=== PATIENT | male | born 1965 | race Caucasian/White ===

== ENCOUNTER 2020-05-08 21:18 | Emergency (ER) | payer OTHER ==
[~2020-05-08] VITALS: Ht 190.5 cm; Wt 97.5 kg
[2020-05-08] MEDS ORDERED: KETOROLAC TROMETHAMINE 30 MG/ML VIAL IV STA (21:38)
[2020-05-08] MEDS ORDERED: KETOROLAC TROMETHAMINE 30 MG/ML VIAL IM STA (21:40)
--- NOTE | 2020-05-08 21:44 | Emergency Department Note ---
History of Present Illnes History of Present Illness Chief Complaint: Back Pain History of Present Illness This is a 54 year old male Chief Complaint Comment 54 Y/O MALE PT AAOX3 PRESENTS TO THE ER C/O LT LOWER BACK WITH PAIN INTERMITTENTLY PAIN TO LLE; PT STATES HE WAS DIGGING A HOLE AND STRAINED HIS BACK AND PAIN PROGRESSIVLY WORSENING OVER THE PAST COUPLE OF DAYS; PT APPEARS IN PAIN; PT TOOK X2 Tylenol AT 1800 Historian: Patient Arrival Mode: Car Rhit Required: No Onset (how long ago): day(s) (2) Location: Left lower back Quality: Sharp Radiation: Reports non-radiation Severity: severe Onset quality: gradual Duration (how long): day(s) (2) Timing of current episode: constant Progression: worsening Chronicity: new Context: Denies recent illness, Denies recent surgery Relieving factors: none Exacerbating factors: none Associated symptoms: Reports denies other symptoms Treatments prior to arrival: none Past Medical/Family History Physician Review I have reviewed the patient's past medical and family history. Any updates have been documented here. Past Medical History Recent Fever: No Clinical Suspicion of Infectio: No New/Unexplained Change in Ment: No Past Medical History: None Other Surgery: CERVICAL FUSION LEFT KNEE SX X2 BACK SX Review of Systems Review of Systems Constitutional: Reports no symptoms EENTM: Reports no symptoms Cardiovascular: Reports no symptoms Respiratory: Reports no symptoms Gastrointestinal: Reports no symptoms Genitourinary: Reports no symptoms Musculoskeletal: Reports as per HPI, Reports back pain (LL) Integumentary: Reports no symptoms Neurological: Reports no symptoms Psychological: Reports no symptoms Endocrine: Reports no symptoms Hematological/Lymphatic: Reports no symptoms Physical Exam Related Data Allergies: Coded Allergies: No Known Allergies (Unverified , 11/13/16) Triage Vital Signs Vital Signs Date Time Temp Pulse Resp B/P (MAP) Pulse Ox O2 Delivery O2 Flow Rate FiO2 05/08/20 21:27 98.1 64 20 146/90 100 Room Air Vital signs reviewed: Yes Physical Exam CONSTITUTIONAL Constitutional: Present well-developed, Present well-nourished HENT HENT: Present normocephalic, Present atraumatic, Present oropharynx clear/moist, Present nose normal HENT L/R: Present left ext ear normal, Present right ext ear normal EYES Eyes: Reports PERRL, Reports conjunctivae normal NECK Neck: Present ROM normal PULMONARY Pulmonary: Present effort normal, Present breath sounds normal CARDIOVASCULAR Cardiovascular: Present regular rhythm, Present heart sounds normal, Present capillary refill normal, Present normal rate GASTROINTESTINAL Abdominal: Present soft, Present nontender, Present bowel sounds normal GENITOURINARY Genitourinary: Present exam deferred SKIN Skin: Present warm, Present dry MUSCULOSKELETAL Musculoskeletal: Present ROM normal, Present tenderness (L lower back) NEUROLOGICAL Neurological: Present alert, Present oriented x 3, Present no gross motor or sensory deficits PSYCHOLOGICAL Psychological: Present mood/affect normal, Present judgement normal Results Laboratory Lab results reviewed: Yes Assessment & Plan Medical Decision Making MDM 54 y.o M presents for Left lower back pain onset yesterday. History of laminectomy 30 years ago. Exam shows tenderness to Left lower back. No midline tenderness, no no red flag symptoms such as urinary retention. Doubt surgical emergency. 10mg Flexeril given, 30mg Toradol and lidocaine patch applied. Will Rx flexeril and lidocaine patch. Appropriate for DC. Reassessment Reassessment time: 00:16 Reassessment Pain mildly improved Assessment & Plan Final Impression: (1) Back pain Depart Disposition: HOME, SELF-CARE Last Vital Signs Date Time Temp Pulse Resp B/P (MAP) Pulse Ox O2 Delivery O2 Flow Rate FiO2 05/08/20 21:27 98.1 64 20 146/90 100 Room Air Medications in the ED Cyclobenzaprine HCl 10 mg ONCE ONCE PO ; Start 05/08/20 at 21:45; Stop 05/08/20 at 21:46; Status UNV Lidocaine 1 ea DAILY TP ; Start 05/09/20 at 09:00; Stop 06/08/20 at 08:59; Status UNV Ketorolac Tromethamine 15 mg ONCE STAT IV ; Start 05/08/20 at 21:38; Stop 05/08/20 at 21:39; Status UNV LUIS EDUARDO TODD MD May 08, 2020 21:44
[2020-05-08] MEDS ORDERED: CYCLOBENZAPRINE HCL 10 MG TAB PO ONE (21:45)
[2020-05-08] MEDS ORDERED: LIDOCAINE 4% PATCH TP ONE (21:49)
[2020-05-08] MEDS ORDERED: CYCLOBENZAPRINE HCL 10 MG TAB ONE (21:49)
[2020-05-08 23:02] LABS: BILIRUBIN,URINE NEGATIVE (NEGATIVE); CLARITY,URINE CLEAR (CLEAR); COLOR,URINE YELLOW (YELLOW); KETONES,URINE NEGATIVE (NEGATIVE); LEUKOCYTE ESTERASE ,URINE NEGATIVE (NEGATIVE); NITRITE,URINE NEGATIVE (NEGATIVE); PROTEIN,URINE DIPSTICK NEGATIVE (NEGATIVE); URINE UROBILINOGEN 0.2 mg/dL (0.2 - 1)
[2020-05-08 23:12] LABS: BACTERIA,URINE RARE /HPF; EPITHELIAL CELLS,URINE FEW /LPF; WBC,URINE (MAN) 0-5 /HPF (0-5)
[2020-05-08] MEDS ORDERED: FENTANYL CITRATE/PF 100MCG/2 ML INJ IJ ONE (23:45)
[2020-05-09] MEDS ORDERED: FENTANYL CITRATE/PF 100MCG/2 ML INJ IJ ONE (00:15)
[2020-05-09] MEDS ORDERED: LIDOCAINE 4% PATCH TP SCH (09:00)
--- OUTSIDE RECORDS SUMMARY | 2020-05-10 19:22 | XMS REPORT | Continuity of Care Document ---
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 Phone Unavailable Unavailable Problems Condition Name Condition Details Condition Category Status Onset Date Resolution Date Last Treatment Date Treating Clinician Comments Source Acute Bronchitis Acut e Bronchitis Active 05/02/2013 [facility] Problem Active 2013-05-02 20:19:05 M sheila Starkey Allergies, Adverse Reactions, Alerts Allergy Name Allergy Type Status Severity Reaction(s) Onset Date Inacti ve Date Treating Clinician Comments Source No Known Drug Allergies No Known Drug Allergies Active [facility] [place] Family History Family Member Diagnosis Comments Start Date Stop Date Source Unknown Family Member Family History 2013-04-11 20:17:03 2 20:17:03 Darcy Starkey Social History Social Habit Start Date Stop Date Quantity Comments Source Social History 2013-05-02 20:19:05 2013-05-02 20:19:05 Darcy [place] Medications Ordered Medication Name Filled Medication Name Start Date Stop Da te Current Medication? Ordering Clinician Indication Dosage Frequency Signature (SIG) Comments Components Source Mucinex TB12 2013-05-02 20:19:05 Yes (Activ e) Darcy [place] Sudafed TABS 2013-05-02 20:19:05 Yes (Activ e) Darcy Starkey Claritin TABS 2013-05-02 20:19:05 Yes (Acti ve) Darcy Starkey Levofloxacin 500 MG Oral Tablet 2013-05-02 05:00:00 Yes ; Start Date: 05/02/2013; End Date: (Active) Darcy [place] PredniSONE 20 MG Oral Tablet 2013-05-02 05:00:00 Yes ; Start Date: 05/02/2013 (Active) Darcy Starkey Advair Diskus 250-50 MCG/DOSE Inhalation Aerosol Powder Apurva th Activated 2013-05-02 05:00:00 Yes ; Start Date: 04/06 (Active) Darcy Starkey Amoxicillin-Pot Clavulanate 875-125 MG Oral Tablet 2013-04 05:00:00 Yes ; Start Date: 04/11/2013; End Date: 07/1899 (Active) Darcy Starkey PredniSONE 10 MG Oral Tablet 2013-04-11 05:00:00 Yes ; Start Date: 04/11/2013; End Date: (Active) Darcy Starkey Benzonatate 200 MG Oral Capsule 2013-04-11 05:00:00 Yes ; Start Date: 04/11/2013 (Active) Darcy Ceballos nn Procedures This patient has no known procedures. Encounters Start Date/Time End Date/Time Encounter Type Admission Type [facility] Care Department Encounter ID Source 2019-09-16 06:44:00 2019-09-16 06:44:00 Outpatient [id number] 2013-05-02 15:19:06 2013-05-02 15:19:05 [place]patient [place] [id number] 2013-04-12 11:47:10 2013-04-12 11:47:09 Outpatient [facility] [id number] 2013-04-11 15:17:04 2013-04-11 15:17:03 Outpatient [facility] [id number] Results This patient has no known results.
--- OUTSIDE RECORDS SUMMARY | 2020-05-10 19:22 | XMS REPORT | Continuity of Care Document ---
Author Author ROMARIO Cotto Organization [employer] Address Unknown Phone Unavailable Care Team Providers Care Education Professional Name Role Phone Tailored Information [employer] Unavailable Un available Problems Problem Status Onset Date Classification Date Reported Comments Source Acute Bronchitis Active 05/02/2013 [facility] Medications Medication Details Route Status Patient Instructions Ordering Provider Order Date Source Levofloxacin 500 MG Oral Tablet ; Start Date: 05/02/2013; End Date: (Active) Active 05/02/2013 [facility] PredniSONE 20 MG Oral Tablet ; Start Date: 05/02/2013 (Active) Active 05/02/2013 [facility] Advair Diskus 250-50 MCG/DOSE Inhalation Aerosol Powder Breath Activated ; Start Date: 05/02/2013 (Active) Active 05/02/2013 [facility] Amoxicillin-Pot Clavulanate 875-125 MG Oral Tablet ; Start Date: 04/11/2013; End Date: (Active) Active 04/11/2013 [facility] PredniSONE 10 MG Oral Tablet ; Start Date: 04/11/2013; End Date: (Active) Active 04/11/2013 [facility] Benzonatate 200 MG Oral Capsule ; Start Date: 04/11/2013 (Active) Active 04/11/2013 [facility] Mucinex TB12 (Active) Active [facility] Sudafed TABS (Active) Active [facility] Claritin TABS (Active) Active [facility] Allergies, Adverse Reactions, Alerts Substance Category Reaction Severity Reaction type Status Date Reported Comments Source No Known Drug Allergies drug a llergy drug aller gy Active [facility] Immunizations Immunization Date Given Site Status Last Updated Comments Source Hepatitis A completed [facility] Results No Data Provided for This Section Pathology Reports No Data Provided for This Section Diagnostic Reports No Data Provided for This Section Consultation Notes No Data Provided for This Section Discharge Summaries No Data Provided for This Section History and Physicals No Data Provided for This Section Vital Signs No Data Provided for This Section Encounters Location Location Details Encounter Type Encounter Number Reason For Visit Attending Provider ADM Date DC Date Status Source AUDIT [id number] 04/11/2013 04/11/2013 [facility] AUDIT [id number] 04/12/2013 04/12/2013 [facility] AUDIT [id number] 05/02/2013 05/02/2013 [facility] Procedures No Data Provided for This Section Assessment and Plan No Data Provided for This Section Plan of Care No Data Provided for This Section Social History Social History Date Source Never A Smoker (Active) Never Drank Alcohol (Active) Marital History - Currently (Active) 05/02/2013 [facility] Family History Value Date S ource Maternal history of Acute Myocardial Inf arction (V17.3); (Active) Maternal history of Coronary Artery Disease (V17.49); (Active) Paternal history of Acute Myocardial Infarction (V17.3); (Active) Paternal history of Coronary Artery Disease (V17.49); (Active) 05/02/2013 [facility] Maternal history of Acute Myocardial Inf arction (V17.3); (Active) Maternal history of Coronary Artery Disease (V17.49); (Active) Paternal history of Acute Myocardial Infarction (V17.3); (Active) Paternal history of Coronary Artery Disease (V17.49); (Active) 04/12/2013 [facility] Maternal history of Acute Myocardial Inf arction (V17.3); (Active) Maternal history of Coronary Artery Disease (V17.49); (Active) Paternal history of Acute Myocardial Infarction (V17.3); (Active) Paternal history of Coronary Artery Disease (V17.49); (Active) 04/11/2013 [facility] Advance Directives Order Name Results Value Date Source Advance Directives Advance Dir ectives No Advance Directives available. 05/02/2013 [facility] Advance Directives Advance Dir ectives No Advance Directives available. 04/12/2013 [facility] Advance Directives Advance Dir ectives No Advance Directives available. 04/11/2013 [facility] Functional Status No Data Provided for This Section
== END 2020-05-09 01:08 | disposition home or self-care (01) ==
LOC: ER 21:39
DX: M54.5 Low back pain (principal); Y93.H1 Activity, digging, shoveling and raking; Y92.008 Other place in unspecified non-institutional (private) residence as the place of occurrence of the external cause; M43.22 Fusion of spine, cervical region
CPT/HCPCS: 81001; 99283; J1885; J3010